=== PATIENT | male | born 1965 | race Caucasian/White ===

== ENCOUNTER 2016-09-26 03:47 | Emergency (ER) | payer BC, SELFPAY ==
[2016-09-26] MEDS ORDERED: ALEV220C2 PO (03:55)
[2016-09-26] MEDS ORDERED: IBUP200T45 PO (03:55)
[2016-09-26] MEDS ORDERED: PERCOCET 5MG/325MG TAB As Ordered ONE (04:20)
[2016-09-26] MEDS ORDERED: PERCOCET 5MG/325MG TAB PO ONE (04:30)
--- NOTE | 2016-09-26 05:00 | REPUSA ---
CLINICAL HISTORY: Back pain. TECHNIQUE: Multiple axial images were obtained through the L1-L2, L2-L3, L3-L4, L4-L5 and L5-S1 inter spaces. Images were also reconstructed in coronal and sagittal planes. COMMENTS: There is no fracture visualized. The paraspinal soft tissues are unremarkable. There are no lytic or blastic lesions. Straightening of lumbar lordosis is seen, suggesting muscular spasm. There is evidence of multilevel disk disease, demonstrated by osteophytosis ad endplate sclerosis. Evaluation of individual levels reveals the following: Mild diffuse disc bulges are noted at the L3-L4, L4-L5 and L5-S1 levels. Secondary mild impingement o n the corresponding aspect of the thecal sac. No significant narrowing of the spinal canal. Mild bila teral neural foramina narrowing. IMPRESSION: 1. No fracture or spondylolisthesis. 2. Straightening of lumbar lordosis is seen, suggesting muscular spasm. 3. Chronic spondylosis and multilevel degenerative disc disease. Thank you for your kind referral of this patient.
[2016-09-26] MEDS ORDERED: NORCO 5/325MG TABLET (BULK FOR ED) PO ONE (05:15)
[2016-09-26 05:23] VITALS: BP 142/77
== END 2016-09-26 05:40 | disposition home or self-care (01) ==
LOC: M ED 03:47
DX: M54.5 Low back pain (principal); M40.56 Lordosis, unspecified, lumbar region; M47.896 Other spondylosis, lumbar region; M51.36 Other intervertebral disc degeneration, lumbar region

== ENCOUNTER 2018-07-18 08:07 | Day surgery (SDC) | payer OTHER ==
[~2018-07-18] VITALS: Ht 180.3 cm; Wt 90.7 kg
[~2018-07-18 08:07] MED LIST: ALEV220C2 PO; BACL10TA2 PO; CYCL10TA PO; GABA-843 PO; HYDR-3363 PO; IBUP200T45 PO; IBUP80TA PO; LATU80TA PO; MONT10TA2 PO; NS 1,000 ML IV ONE
[2018-07-18] MEDS ORDERED: PROPOFOL 200 MG/20 ML VIAL As Ordered ONE (09:52)
[2018-07-18] MEDS ORDERED: LIDOCAINE 2% INJ 100 MG/5 ML SDV (FOR ANES.) As Ordered ONE (09:52)
--- NOTE | 2018-07-18 09:54 | ROOR ---
Patient Name: Bola Ernandez Procedure Date: 07/18/2018 9:41 AM Date of : 1965 Age: 52 Room: [facility] Gender: Male Note Status: Finalized Procedure: Colonoscopy Indications: Screening for colorectal malignant neoplasm Providers: Pedro Corrales Jr, MD Referring MD: Humberto Mendoza Requesting Provider: Medicines: Propofol per Anesthesia Complications: No immediate complications. Procedure: Pre-Anesthesia Assessment: - Prior to the procedure, a History and Physical was performed, and patient medications and allergies were reviewed. The patient is competent. The risks and benefits of the procedure and the sedation options and risks were discussed with the patient. All questions were answered and informed consent was obtained. Patient identification and proposed procedure were verified by the physician and the nurse in the pre-procedure area and in the procedure room. Mental Status Examination: alert and oriented. Airway Examination: normal oropharyngeal airway and neck mobility. Respiratory Examination: clear to auscultation. CV Examination: normal. ASA Grade Assessment: II - A patient with mild systemic disease. After reviewing the risks and benefits, the patient was deemed in satisfactory condition to undergo the procedure. The anesthesia plan was to use moderate sedation / analgesia (conscious sedation). Immediately prior to administration of medications, the patient was re-assessed for adequacy to receive sedatives. The heart rate, respiratory rate, oxygen saturations, blood pressure, adequacy of pulmonary ventilation, and response to care were monitored throughout the procedure. The physical status of the patient was re-assessed after the procedure. The Colonoscope was introduced through the anus and advanced to the cecum, identified by appendiceal orifice and ileocecal valve. The colonoscopy was performed without difficulty. The patient tolerated the procedure well. The quality of the bowel preparation was adequate. Findings: The rectum, recto-sigmoid colon, sigmoid colon, descending colon, transverse colon, ascending colon, cecum, appendiceal orifice and ileocecal valve appeared normal. Impression: - The rectum, recto-sigmoid colon, sigmoid colon, descending colon, transverse colon, ascending colon, cecum, appendiceal orifice and ileocecal valve are normal. - No specimens collected. Recommendation: - Discharge patient to home (ambulatory). - Repeat colonoscopy in 10 years for screening purposes. Pedro Corrales MD Pedro Corrales Jr, MD 07/18/2018 9:54:06 AM Electronically signed by Pedro Corrales Jr, MD Number of Addenda: 0 Note Initiated On: 07/18/2018 9:41 AM Estimated Blood Loss: Estimated blood loss: none.
[2018-07-18 10:15] VITALS: BP 118/89
== END 2018-07-18 10:24 | disposition home or self-care (01) ==
LOC: M OPP 08:07
PROVIDERS: ATTEND Surgery
DX: Z12.11 Encounter for screening for malignant neoplasm of colon (principal)

== ENCOUNTER 2018-09-05 16:30 | Emergency (ER) | payer OTHER ==
[~2018-09-05] VITALS: Ht 180.3 cm; Wt 87.0 kg
[~2018-09-05 16:30] MED LIST changes: -NS 1,000 ML IV ONE
[2018-09-05 17:38] LABS: BASO # 0.1 10^3/uL (0.0-0.2); BASO % 0.9 % (0.0-1.0); EOS # 0.1 10^3/uL (0.0-0.50); EOS % 1.2 % (0.0-3.0); HEMATOCRIT 44.9 % (42.0-52.0); HEMOGLOBIN 15.7 g/dl (13.5-17.5); LYMPH % 23.8 % (24.0-44.0); MEAN CORPUSCULAR HEMOGLOBIN 33.3 pg (27.0-33.0); MEAN CORPUSCULAR VOLUME 95.3 fl (80.0-96.0); MONO # 0.5 10^3/uL (0.0-0.8); MONO % 5.5 % (0.0-5.0); NEUTROPHILS # 5.8 10^3/uL (1.8-7.7); NEUTROPHILS % 68.2 % (36.0-66.0); PLATELET COUNT, AUTOMATED 207 10^3/uL (150-450); RED BLOOD COUNT 4.71 10^6/uL (4.30-6.10); WHITE BLOOD COUNT 8.5 10^3/uL (4.0-10.0)
[2018-09-05 17:45] LABS: ALBUMIN 3.7 GM/DL (3.2-5.2); ALT/SGPT 23 U/L (12-78); BILIRUBIN,TOTAL 0.7 MG/DL (0.2-1.0); BLOOD UREA NITROGEN 11 MG/DL (7-18); CALCIUM LEVEL 9.1 MG/DL (8.5-10.1); CARBON DIOXIDE LEVEL 29 MEQ/L (21-32); CHLORIDE LEVEL 105 MEQ/L (98-107); CK-MB VALUE MASS < 1.0 NG/ML (<3.6); CPK CREATINE PHOSPHOKINASE 58 U/L (39-308); CREATININE FOR GFR 1.19 MG/DL (0.70-1.30); GLOMERULAR FILTRATION RATE > 60.0 (>56); GLUCOSE, FASTING 154 MG/DL (70-100); LIPASE 75 U/L (73-393); MB/CK RELATIVE INDEX 1.72 (< OR =4); POTASSIUM SERUM 3.8 MEQ/L (3.5-5.1); SODIUM LEVEL 139 MEQ/L (136-145); TROPONIN I < 0.02 NG/ML (< 0.10)
--- NOTE | 2018-09-05 17:48 | REP ---
Clinical: Chest pain . Comparison: 12/11/2016 . Findings: The mediastinum and cardiac silhouette are stable and within normal limits for portable technique. The lung frey are clear without acute consolidation, effusion, or pneumothorax. Skeletal structures are intact. Impression: No acute cardiopulmonary process appreciated. Electronically Signed by Lasha Hutton MD 09/05/2018 05:39 P
[2018-09-05 17:53] LABS: INR 1.12; PROTHROMBIN TIME 14.1 SECONDS (11.8-14.0)
[2018-09-05 18:19] LABS: MAGNESIUM LEVEL 2.3 MG/DL (1.8-2.4)
[2018-09-05 22:48] LABS: CK-MB VALUE MASS < 1.0 NG/ML (<3.6); CPK CREATINE PHOSPHOKINASE 59 U/L (39-308); MB/CK RELATIVE INDEX 1.69 (< OR =4)
[2018-09-05 22:49] LABS: TROPONIN I < 0.02 NG/ML (< 0.10)
[2018-09-05 23:31] VITALS: BP 111/80
--- NOTE | 2018-09-06 21:59 | ECGEPIP ---
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
--- NOTE | 2018-09-06 22:11 | ECGEPIP ---
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
== END 2018-09-05 23:48 | disposition home or self-care (01) ==
LOC: M ED 16:30
DX: R55 Syncope and collapse (principal); F33.9 Major depressive disorder, recurrent, unspecified; G89.29 Other chronic pain; M54.9 Dorsalgia, unspecified; Z79.899 Other long term (current) drug therapy

== ENCOUNTER 2023-04-14 20:56 | Emergency (ER) | payer OTHER ==
[~2023-04-14] VITALS: Ht 180.3 cm; Wt 83.6 kg
[~2023-04-14 20:56] MED LIST changes: +CYCL-707 PO; -CYCL10TA PO; +GABA-282 PO; -GABA-843 PO; -IBUP200T45 PO; +IBUP200T46 PO; -LATU80TA PO; +LATU80TA2 PO; -MONT10TA2 PO; +MONT10TA97 PO
[2023-04-15] MEDS: KETOROLAC 60MG 2ML VIAL IM ONE (01:18)
[2023-04-15] MEDS ORDERED: TRAM50TA2 PO (01:19)
[2023-04-15] MEDS ORDERED: IBUP-1022 PO (01:19)
[2023-04-15] MEDS ORDERED: AMOX875T2 PO (01:19)
[2023-04-15] MEDS: BOOSTRIX VACCINE (TETANUS/DIPHTH/ACEL. PERTUSSIS) 0.5ML SYR IM ONE (01:21)
[2023-04-15] MEDS: AUGMENTIN 875 MG TAB PO ONE (03:13)
[2023-04-15] MEDS: traMADol 50 MG TAB (HOME DOSE PACK) PO ONE (03:14)
[2023-04-15 03:32] VITALS: BP 158/76; TEMP 97.6; O2SAT 99
== END 2023-04-15 03:17 | disposition home or self-care (01) ==
LOC: M ED 20:56
DX: S51.831A Puncture wound without foreign body of right forearm, initial encounter (principal); W54.0XXA Bitten by dog, initial encounter; F17.200 Nicotine dependence, unspecified, uncomplicated; F12.10 Cannabis abuse, uncomplicated; Z79.2 Long term (current) use of antibiotics; Z79.1 Long term (current) use of non-steroidal anti-inflammatories (NSAID); Z79.899 Other long term (current) drug therapy; Y92.9 Unspecified place or not applicable; Y93.89 Activity, other specified; Y99.0 Civilian activity done for income or pay; Z23 Encounter for immunization
CPT/HCPCS: 73090; 73590; 90471; 90715; 96372; 99283; J1885